=== PATIENT | male | born 2000 | race Caucasian/White ===

== ENCOUNTER 2022-10-10 12:56 | Outpatient (CLI) | payer OTHER | END 2022-10-10 12:57 | disposition home or self-care (01) | LOC: BURRAD 12:56 | PROVIDERS: ATTEND Nurse Practitioner Family | DX: R07.9 Chest pain, unspecified (principal) | CPT/HCPCS: 71046 ==

== ENCOUNTER 2022-12-06 14:01 | Emergency (ER) | payer MEDICAID, SELFPAY ==
[2022-12-06] MEDS ORDERED: predniSONE 20 MG TAB ONE (15:17)
== END 2022-12-06 15:23 | disposition home or self-care (01) ==
LOC: BURERS 14:01
DX: M10.9 Gout, unspecified (principal)
CPT/HCPCS: 99283; J7512